=== PATIENT | male | born 1980 | race African-American/Black ===

== ENCOUNTER 2017-10-06 09:02 | Emergency (ER) | payer OTHER ==
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
[2017-10-06] MEDS ORDERED: ACETAMINOPHEN 325 MG TABLET PO ONE (11:28)
[2017-10-06] MEDS ORDERED: IBUPROFEN 600 MG TABLET PO ONE (11:28)
[2017-10-06 11:46] VITALS: BP 133/93
== END 2017-10-06 11:47 | disposition home or self-care (01) ==
LOC: ER 09:02
DX: S16.1XXA Strain of muscle, fascia and tendon at neck level, initial encounter (principal); R51 Headache; M54.6 Pain in thoracic spine; M54.5 Low back pain; M54.2 Cervicalgia; V49.9XXA Car occupant (driver) (passenger) injured in unspecified traffic accident, initial encounter
CPT/HCPCS: 70450; 72070; 72110; 72125; 99284